=== PATIENT | male | born 1945 | race Caucasian/White ===

== ENCOUNTER 2017-10-25 13:35 | Inpatient (IN) | payer MEDICARE ==
[~2017-10-25] VITALS: Ht 182.9 cm; Wt 117.0 kg
[2017-10-25] MEDS ORDERED: ASPI-1159 PO (13:49)
[2017-10-25] MEDS ORDERED: APIX5TAB PO (13:49)
[2017-10-25] MEDS ORDERED: METF500T4 PO (13:49)
[2017-10-25] MEDS ORDERED: PRAV10TA35 PO (13:49)
[2017-10-25] MEDS ORDERED: NITR0.4T49 SL (13:49)
[2017-10-25] MEDS ORDERED: METO-396 PO (13:49)
[2017-10-25] MEDS ORDERED: GABA800T PO (13:49)
[2017-10-25 15:00] LABS: BASOPHILS % 0.2 % (0.0-2.0); EOSINOPHILS % 0.4 % (0.0-5.0); HEMOGLOBIN. 10.1 g/dL (14.0-18.0); LYMPHOCYTES % 8.9 % (20.0-50.0); MEAN CORPUSCULAR HEMOGLOBIN 25.6 pg (28.0-32.0); MEAN CORPUSCULAR VOLUME 76.3 fL (80.0-94.0); MEAN PLATELET VOLUME 7.9 fl (7.4-10.4); MONOCYTES % 5.5 % (2.0-8.0); PLATELET 184 x1000/uL (130-400); RED BLOOD CELL COUNT 3.93 mill/uL (4.7-6.1); RED CELL DISTRIBUTION WIDTH 16.4 % (11.6-14.6)
[2017-10-25 15:06] LABS: CHLORIDE 107 mEq/L (98-107)
[2017-10-25 15:08] LABS: INR 1.1; PARTIAL THROMBOPLASTIN TIME 26.2 sec (23.4-31.0); PROTHROMBIN TIME 11.3 sec (9.4-11.6)
[2017-10-25] MEDS ORDERED: NITROGLYCERIN 0.4MG TABLET SL SL PRN (16:15)
[2017-10-25] MEDS ORDERED: ASPIRIN 81MG TABLET PO ONE (16:15)
[2017-10-25] MEDS ORDERED: ENOXAPARIN 40MG/0.4ML SYR SUBCUT SCH (18:15)
[2017-10-25] MEDS ORDERED: ONDANSETRON HCL 4MG/2ML VIAL IV PRN (18:15)
[2017-10-25] MEDS ORDERED: MAGNESIUM/ALUMINUM HYDROXIDE/SIMETHICONE 30ML UDC PO PRN (18:15)
[2017-10-25] MEDS ORDERED: ACETAMINOPHEN 325MG TABLET PO PRN (18:15)
[2017-10-25] MEDS ORDERED: DOCUSATE SODIUM 100MG CAPSULE PO PRN (18:15)
[2017-10-25] MEDS ORDERED: IPRATROPIUM/ALBUTEROL 0.5-3(2.5)MG/3ML NEB INH PRN (18:15)
[2017-10-25] MEDS ORDERED: CLONIDINE 0.1MG TABLET PO PRN (18:15)
[2017-10-25] MEDS: HYDROCODONE/ACETAMINOPHEN 5/325MG TABLET PO PRN ×2 (19:47→22:53)
[2017-10-25] MEDS ORDERED: ONDANSETRON HCL 4MG/2ML VIAL IV ONE (22:45)
[2017-10-25 23:00] VITALS: BP 158/57
[2017-10-26 00:01] VITALS: BP 158/62
[2017-10-26] MEDS ORDERED: DEXTROSE 50% WATER 50ML SYRINGE IV PRN (01:00)
[2017-10-26] MEDS ORDERED: MORPHINE SULFATE 4 MG/ML CPJ (NOT FOR IM USE) IV ONE (01:12)
[2017-10-26 01:16] VITALS: BP 148/69
[2017-10-26] MEDS: MORPHINE SULFATE 4 MG/ML CPJ (NOT FOR IM USE) IV PRN ×2 (01:28→07:13)
[2017-10-26 04:20] VITALS: BP 140/55
[2017-10-26 07:10] VITALS: BP 127/60
[2017-10-26] MEDS ORDERED: BLOOD SUGAR DIAGNOSTIC STRIP TEST SCH (07:10)
[2017-10-26 07:13] VITALS: BP 127/60
[2017-10-26] MEDS ORDERED: INSULIN LISPRO 100 UNITS/ML SUBCUT SCH (07:40)
[2017-10-26] MEDS: ASPIRIN 81MG EC TABLET PO SCH ×2 (09:00→09:01)
== END 2017-10-26 09:03 | disposition left against medical advice (07) | DRG 313 ==
LOC: ER 14:45 → 8WST 16:10 → EDBEDREQ 16:12 → ENRESERV 20:28
PROVIDERS: ADMIT Internal Medicine; ATTEND Internal Medicine
DX: R07.9 Chest pain, unspecified (principal); I25.10 Atherosclerotic heart disease of native coronary artery without angina pectoris; E11.40 Type 2 diabetes mellitus with diabetic neuropathy, unspecified; E11.65 Type 2 diabetes mellitus with hyperglycemia; I50.9 Heart failure, unspecified; E78.00 Pure hypercholesterolemia, unspecified; Z87.891 Personal history of nicotine dependence; Z95.5 Presence of coronary angioplasty implant and graft; Z88.8 Allergy status to other drugs, medicaments and biological substances; Z79.899 Other long term (current) drug therapy; Z79.82 Long term (current) use of aspirin; Z86.711 Personal history of pulmonary embolism; Z53.21 Procedure and treatment not carried out due to patient leaving prior to being seen by health care provider
CPT/HCPCS: 36415; 71045; 80053; 82962; 83690; 84484; 85025; 85610; 85730; 93005; 93970; 96374; 99285; J2270; J2405